=== PATIENT | male | born 1935 | race Caucasian/White ===

== ENCOUNTER 2016-11-21 13:17 | Emergency (ER) | payer MEDICARE ==
[2016-11-21 13:42] VITALS: PULSE 54; RESP 16
[2016-11-21] MEDS ORDERED: MAGNESIUM CITRATE 296 ML BOTTLE PO ONE (13:51)
--- NOTE | 2016-11-21 13:53 | ED ---
General Adult HPI - General Chief complaint: Abdominal Pain Stated complaint: Constapation Time Seen by Provider: 11/21/16 13:44 Source: patient, RN notes reviewed Mode of arrival: ambulatory Limitations: no limitations - History of Present Illness Initial comments: 81-year-old male who presents emergency room today with chief complaint constipation last 4 days. States not had a bowel movement 4 days. States is typically very regular. States she's tried [id number] laxative along with a fleets enema with no success. Patient does admit that he's passing flatulence. He denies any abdominal pain. He denies any other complaints or symptoms. Patient denies any recent fever, chills, shortness of breath, chest pain, back pain, abdominal pain, nausea or vomiting, numbness or tingling, dysuria or hematuria, diarrhea, headaches or visual changes, or any other complaints. - Related Data Home Medications Medication Instructions Recorded Confirmed Aspirin 81 mg PO DAILY 11/21/16 11/21/16 Cholecalciferol [Vitamin D3] 5,000 unit PO DAILY 11/21/16 11/21/16 Cyanocobalamin (Vitamin B-12) 1,000 mcg PO DAILY 11/21/16 11/21/16 [Vitamin B-12] Dabigatran [Pradaxa] 75 mg PO BID 11/21/16 11/21/16 Donepezil [Aricept] 5 mg PO DAILY 11/21/16 11/21/16 Dronedarone [Multaq] 400 mg PO BID 11/21/16 11/21/16 Escitalopram [Lexapro] 10 mg PO DAILY 11/21/16 11/21/16 Fenofibrate Nanocrystallized 145 mg PO DAILY 11/21/16 11/21/16 [Fenofibrate] Fluticasone/Salmeterol [Advair 1 inhalation PO RT-BID 11/21/16 11/21/16 250-50 Diskus] Folic Acid 1 mg PO DAILY 11/21/16 11/21/16 Gabapentin [Neurontin] 300 mg PO DIRECTED 11/21/16 11/21/16 Memantine HCl [Namenda] 10 mg PO BID 11/21/16 11/21/16 [place]-3 Fatty Acids/Fish Oil [Fish 1 cap PO DAILY 11/21/16 11/21/16 Oil 1,000 mg Capsule] Pantoprazole [Protonix] 40 mg PO DAILY 11/21/16 11/21/16 Simvastatin [Simvastatin] 40 mg PO HS 11/21/16 11/21/16 traMADol HCl [Ultram] 50 mg PO Q6H PRN 11/21/16 11/21/16 Allergies Allergy/AdvReac Type Severity Reaction Status Date / Time No Known Allergies Allergy Verified 11/21/16 14:54 Review of Systems ROS Statement: Those systems with pertinent positive or pertinent negative responses have been documented in the HPI. ROS Other: All systems not noted in ROS Statement are negative. Past Medical History Past Medical History: COPD, Hyperlipidemia, Hypertension, Myocardial Infarction ([place]) Additional Past Medical History / Comment(s): hernia dementia History of Any Multi-Drug Resistant Organisms: None Reported Past Surgical History: Back Surgery, Heart Catheterization With Stent, Hernia Repair Additional Past Surgical History / Comment(s): kidney Past Psychological History: No Psychological Hx Reported Smoking Status: Former smoker Past Alcohol Use History: Occasional Past Drug Use History: None Reported General Exam - General Exam Comments Initial Comments: General: The patient is awake and alert, in no distress, and does not appear acutely ill. Eye: Pupils are equal, round and reactive to light, extra-ocular movements are intact. No nystagmus. There is normal conjunctiva bilaterally. No signs of icterus. Ears, nose, mouth and throat: There are moist mucous membranes and no oral lesions. Neck: The neck is supple, there is no tenderness or JVD. Cardiovascular: There is a regular rate and rhythm. No murmur, rub or gallop is appreciated. Respiratory: Lungs are clear to auscultation, respirations are non-labored, breath sounds are equal. No wheezes, stridor, rales, or rhonchi. Gastrointestinal: Soft, non-distended, non-tender abdomen without masses or organomegaly noted. There is no rebound or guarding present. No CVA tenderness. Bowel sounds are unremarkable. Musculoskeletal: Normal ROM, no tenderness. Strength 5/5. Sensation intact. Pulses equal bilaterally 2+. Neurological: A&O x 3. CN II-XII intact, There are no obvious motor or sensory deficits. Coordination appears grossly intact. Speech is normal. Skin: Skin is warm and dry and no rashes or lesions are noted. Psychiatric: Cooperative, appropriate mood & affect, normal judgment. Limitations: no limitations Course Vital Signs 11/21/16 13:37 Temperature 98.7 F Pulse Rate 54 L Respiratory 16 Rate Blood Pressure 119/62 O2 Sat by Pulse 96 Oximetry Medical Decision Making - Medical Decision Making patient was given magnesium citrate and enema here in emergency room. Able have bowel movement and is feeling better. States it ready to go home. Disposition Clinical Impression: Constipation Disposition: HOME SELF-CARE Condition: Good Instructions: Constipation (ED) Additional Instructions: Please return to emergency room if the symptoms increase or worsen or for any other concerns. Referrals: None,Stated [REFERRING] - 1-2 days Time of Disposition: 16:00
--- NOTE | 2016-11-21 14:28 | XR ---
EXAMINATION TYPE: XR KUB DATE OF EXAM: 11/21/2016 CLINICAL HISTORY: Abdominal pain. Constipation for 4 to 5 days. TECHNIQUE: 2 upright KUB images of the abdomen are obtained COMPARISON: None. FINDINGS: Scattered gas is seen in non-distended small bowel loops. Gas and fecal material is seen in non-distended colon. There is slightly prominent gas-filled colonic loop near splenic flexure. Sli ghtly prominent gas bubble in stomach is noted. Left lateral fusion hardware L4-L5 level with artific ial disc is present. There is multilevel spurring throughout remainder spine. Lung bases are clear. N o suspicious calcifications are seen. IMPRESSION: Overall nonspecific but favor nonobstructive bowel gas pattern.
[2016-11-21 16:04] VITALS: BP 123/63; TEMP 97.9
== END 2016-11-21 16:10 | disposition home or self-care (01) ==
LOC: EC 13:17
DX: K59.00 Constipation, unspecified (principal); J44.9 Chronic obstructive pulmonary disease, unspecified; E78.5 Hyperlipidemia, unspecified; I10 Essential (primary) hypertension; I25.2 Old myocardial infarction; F03.90 Unspecified dementia, unspecified severity, without behavioral disturbance, psychotic disturbance, mood disturbance, and anxiety; Z87.891 Personal history of nicotine dependence; Z79.82 Long term (current) use of aspirin; Z79.51 Long term (current) use of inhaled steroids; Z79.899 Other long term (current) drug therapy; Z87.19 Personal history of other diseases of the digestive system; Z95.5 Presence of coronary angioplasty implant and graft; Z98.890 Other specified postprocedural states
CPT/HCPCS: 74000; 99284